=== PATIENT | female | born 2000 | race Caucasian/White ===

== ENCOUNTER 2022-08-05 06:45 | Observation (INO) ==
[2022-08-05 07:03] VITALS: BMI 21.6
[2022-08-05] MEDS ORDERED: TORADOL 60 MG VIAL IM ONE (07:09)
[2022-08-05] MEDS ORDERED: TORADOL 60 MG VIAL ONE (07:10)
[2022-08-05 07:25] LABS: BILIRUBIN,URINE NEGATIVE (NEGATIVE); BLOOD/HEMOGLOBIN,URINE 4+ (NEGATIVE); GLUCOSE, URINE NEGATIVE (NEGATIVE); KETONES,URINE NEGATIVE (NEGATIVE); LEUKOCYTE ESTERASE ,URINE NEGATIVE (NEGATIVE); NITRITES,URINE NEGATIVE (NEGATIVE); PROTEIN,URINE 1+ (NEGATIVE); UROBILINOGEN,URINE NORMAL (NORMAL)
[2022-08-05 07:26] LABS: BASOPHILS # (AUTO) 0.1 X10^3/uL (0.0-0.1); BASOPHILS % (AUTO) 0.7 % (0.2-1.0); EOSINOPHILS # (AUTO) 0.2 x10^3/uL (0.0-0.2); EOSINOPHILS % (AUTO) 1.3 % (0.9-2.9); HEMATOCRIT 36.7 % (36.0-47.0); HEMOGLOBIN 12.6 g/dL (12.0-16.0); LYMPHOCYTES # (AUTO) 3.6 X10^3/uL (1.3-2.9); LYMPHOCYTES % (AUTO) 26.9 % (21.0-51.0); MEAN CORPUSCULAR HEMOGLOBIN 27.7 pg (27.0-34.0); MEAN CORPUSCULAR HGB CONC 34.2 g/dL (33.0-35.0); MEAN CORPUSCULAR VOLUME 80.9 fL (80.0-100.0); MEAN PLATELET VOLUME 8.6 fL (7.4-11.0); MONOCYTES # (AUTO) 0.9 x10^3/uL (0.3-0.8); MONOCYTES % (AUTO) 6.6 % (0.0-13.0); NEUTROPHILS # (AUTO) 8.5 x10^3/uL (2.2-4.8); NEUTROPHILS % (AUTO) 64.5 % (42.0-75.0); RED BLOOD COUNT 4.54 X10^6/uL (3.5-5.4); RED CELL DISTRIBUTION WIDTH 12.9 % (11.6-16.5); WHITE BLOOD COUNT 13.2 X10^3/uL (3.6-10.0)
--- NOTE | 2022-08-05 07:26 | ED.ABDFE ---
HPI Time Seen Time Seen by Provider: 08/05/22 07:21 PCP Primary Care Physician: DEMIAN APONTE Complaint Doctors Chief Complaint Comments: PATIENT C/O INCREASED VAGINAL BLEEDING WITH ONSET OF LLQ ABDOMINAL PAIN STARTING YESTERDAY. TOOK IBUPROFEN 800MG YESTERDAY . HAD IUD REMOVED 2 WEEKS AGO AND HAD HAD SOME VAGINAL BLEEDING SINCE,BECAME MORE SEVERE YESTERDAY. Chief Complaint:: PT C/O SUDDEN ONSET OF PAIN INTO THE LEFT LOWER QUADRANT THAT RADIATES INTO THE MIDDLE OF THE PELVIS THAT STARTED YESTERDAY AFTERNOON. PT ALEX CRIBES PAIN A CONSTANT SEVERE CRAMPING THAT IS ASSOCIATED WITH NAUSEA. PT STATES THAT STRAINING TO URINATE MAKES THE PAIN WORSE. DENIES FEVER COVID-19 Coronavirus risk:travel/contact w/high risk person: No Has patient experienced Coronavirus symptoms: No Source History Provided: Patient Mode of arrival Mode of Arrival: Ambulatory Timing Onset of Chief Complaint: 08/04/22 PMH PMH Past Medical History: Yes Past Medical History Comment: vitiligo Past Surgical History: Yes Past Surgical History Comment: WISDOM TEETH REMOVED Family History History of Family Medical Conditions: Yes Family Medical History Comment: HYPOTHYROIDISM Social History Does patient currently use any type of tobacco product: No Have you used tobacco products in the last 12 months: No Type of Tobacco Use: None Does any household member use tobacco: No Alcohol Use: None Do you use any recreational Drugs:: No Lives With: Family Lives Where: Home Travel Risk Coronavirus risk:travel/contact w/high risk person: No Has patient experienced Coronavirus symptoms: No Infectious screening In the last 2 months have you had wt loss of >10#?: NO Have you had fever, night sweats or hemotysis?: No Have you traveled outside the country in the last 6 months?: No Isolation: Standard ROS Review of Systems Constitutional: Other (VAGINAL BLEDING WITH LLQ ABDOMINAL PAIN) Eyes: No Symptoms Reported ENTM: No Symptoms Reported Respiratoy: No Symptoms Reported Cardiovascular: No Symptoms Reported Gastrointestinal/Abdominal: Abdominal Pain Genitourinary: Bleeding (VAGINAL) Neurological: No Symptoms Reported Musculoskeletal: No Symptoms Reported Integumentary: No Symptoms Reported Hematologic/Lymphatic: No Symptoms Reported Endocrine: No Symptoms Reported Psychiatric: No Symptoms Reported PE Vital Signs Vitals: Temperature 97 F Pulse Rate [Left Radial] 115 Pulse Rate [Standing] 140 Pulse Rate [Sitting] 133 Pulse Rate [Lying] 118 Pulse Rate 130 Respiratory Rate 18 Blood Pressure [Standing] 118/86 Blood Pressure [Sitting] 124/77 Blood Pressure [Lying] 128/74 Blood Pressure 115/56 O2 Sat by Pulse Oximetry 100 General Limitations: No Limitations General Appearance: In Distress (MILD DISTRESS) Head Head Exam: Normal Inspection, Atraumatic and Normocephalic Eyes Eye exam: Normal Appearance, PERRL and EOMI ENT ENT Exam: Normal Exam, Normal Oropharynx and Normal External Ear Exam Neck Neck Exam: Normal Inspection, Full ROM and Trachea Midline Chest Chest Inspection: Normal Inspection and Symmetric Chest Wall Rise Respiratory Respiratory Exam: Normal Lung Sounds Bilat Respiratory Exam: Bilateral: Clear to Auscultation Cardiovascular Cardiovascular Exam: Regular Rate and Normal Rhythm Abdominal Exam Abdominal Exam: Normal Inspection, Normal Bowel Sounds, Soft and Tenderness (LLQ>RLQ) Abdominal Tenderness: LUQ and LLQ Rectal Rectal Exam: Deferred Back Back Exam: Normal Inspection and Full ROM Extremeties Extremities Exam: Normal Inspection and Full ROM External Exam: Female: Deferred MDM Differential Diagnosis Differential Diagnosis- Considerations may include:: Dysmenorrhea, Ectopic , PID and Urinary tract infection COURSE Treatment Treatment: PATIENT WAS GIVEN TORADOL 60MG IM FOR PAIN. HAD POSITVE TEST AND QHCG WAS ORDERED AND OB ULTRASOUND FOR POSSIBLE TUBAL . THIS PATIENT WAS SIGNED OUT TO DR CROCKETT AT SHIFT CHANGE. ROR Labs Reviewed Laboratory Results Reviewed?: Yes Result Diagrams: 08/06/22 04:00 08/06/22 04:00 Laboratory: WBC 13.2 X10^3/uL (3.6-10.0) H 08/05/22 07:15 RBC 4.54 X10^6/uL (3.5-5.4) 08/05/22 07:15 Hgb 12.6 g/dL (12.0-16.0) 08/05/22 07:15 Hct 36.7 % (36.0-47.0) 08/05/22 07:15 MCV 80.9 fL (80.0-100.0) 08/05/22 07:15 MCH 27.7 pg (27.0-34.0) 08/05/22 07:15 MCHC 34.2 g/dL (33.0-35.0) 08/05/22 07:15 RDW 12.9 % (11.6-16.5) 08/05/22 07:15 Plt Count 291 X10^3/uL (150.0-450.0) 08/05/22 07:15 MPV 8.6 fL (7.4-11.0) 08/05/22 07:15 Neut % (Auto) 64.5 % (42.0-75.0) 08/05/22 07:15 Lymph % (Auto) 26.9 % (21.0-51.0) 08/05/22 07:15 [place] % (Auto) 6.6 % (0.0-13.0) 08/05/22 07:15 Eos % (Auto) 1.3 % (0.9-2.9) 08/05/22 07:15 Baso % (Auto) 0.7 % (0.2-1.0) 08/05/22 07:15 Neut # (Auto) 8.5 x10^3/uL (2.2-4.8) H 08/05/22 07:15 Lymph # (Auto) 3.6 X10^3/uL (1.3-2.9) H 08/05/22 07:15 [place] # (Auto) 0.9 x10^3/uL (0.3-0.8) H 08/05/22 07:15 Eos # (Auto) 0.2 x10^3/uL (0.0-0.2) 08/05/22 07:15 Baso # (Auto) 0.1 X10^3/uL (0.0-0.1) 08/05/22 07:15 Absolute Nucleated RBC 0.0 /100WBC 08/05/22 07:15 Sodium 141 mmol/L (136-145) 08/05/22 07:15 Corrected Sodium TNP 08/05/22 07:15 Potassium 3.3 mmol/L (3.5-5.1) L 08/05/22 07:15 Chloride 104 mmol/L (98-107) 08/05/22 07:15 Carbon Dioxide 25.7 mmol/L (21-32) 08/05/22 07:15 BUN 10 mg/dL (7-18) 08/05/22 07:15 Creatinine 0.89 mg/dL (0.55-1.02) 08/05/22 07:15 Est GFR (MDRD) Af Amer > 60 (>60) 08/05/22 07:15 Est GFR (MDRD) Non-Af > 60 (>60) 08/05/22 07:15 Glucose 103 mg/dL (65-99) H 08/05/22 07:15 Calcium 8.6 mg/dL (8.5-10.1) 08/05/22 07:15 Corrected Calcium TNP 08/05/22 07:15 Total Bilirubin 0.60 mg/dL (0.2-1.0) 08/05/22 07:15 AST 15 Units/L (15-37) 08/05/22 07:15 ALT 16 Units/L (12-78) 08/05/22 07:15 Alkaline Phosphatase 57 Units/L (46-116) 08/05/22 07:15 Total Protein 7.2 g/dL (6.4-8.2) 08/05/22 07:15 Albumin 4.1 g/dL (3.4-5.0) 08/05/22 07:15 Globulin 3.1 g/dL (2.5-4.5) 08/05/22 07:15 Albumin/Globulin Ratio 1.3 Ratio (1.1-2.1) 08/05/22 07:15 HCG, Qual Positive >10 mIU/mL 08/05/22 07:15 HCG, Quant 4482 mIU/mL (0-6) H 08/05/22 07:15 Specimen Type Clean catch urine 08/05/22 07:09 Urine Color Yellow (YELLOW) 08/05/22 07:09 Urine Appearance Hazy (CLEAR) 08/05/22 07:09 Urine pH 6.0 (5.0 - 8.0) 08/05/22 07:09 Ur Specific [place] 1.020 (1.000-1.030) 08/05/22 07:09 Urine Protein 1+ (NEGATIVE) 08/05/22 07:09 Urine Glucose (UA) Negative (NEGATIVE) 08/05/22 07:09 Urine Ketones Negative (NEGATIVE) 08/05/22 07:09 Urine Blood 4+ (NEGATIVE) 08/05/22 07:09 Urine Nitrite Negative (NEGATIVE) 08/05/22 07:09 Urine Bilirubin Negative (NEGATIVE) 08/05/22 07:09 Urine Urobilinogen Normal (NORMAL) 08/05/22 07:09 Ur Leukocyte Esterase Negative (NEGATIVE) 08/05/22 07:09 Urine RBC 3-5 /HPF (0-3) A 08/05/22 07:09 Urine WBC 3-5 /HPF (0-5) 08/05/22 07:09 Ur Squamous Epith Cells Moderate /HPF (NEGATIVE) 08/05/22 07:09 Urine Bacteria Trace /HPF (NEGATIVE) 08/05/22 07:09 Urine Mucus Few /HPF (NEGATIVE) 08/05/22 07:09 Ur Culture Indicated? No/not indicated 08/05/22 07:09 Tissue Pathology To follow 08/05/22 10:50 Opioid Opioid Risk Tool Age (Luis Alberto box if 16-45): Yes History of Preadolescent Sexual Abuse: No Total: 1 Total Score Risk Category: Low Risk Copyright: Pedro STINSON predicting aberrant behaviors Discharge Plan Diagnosis Discharge Problem: DUB (dysfunctional uterine bleeding), Left tubal Discharge Plan Patient Disposition: ADMITTED INPATIENT Condition: Stable Orders to Discharge Patient Discharge Orders: Discharge (Routine); Ordered 08/06/22 Ordered By: JACQUELYN CEDEÑO
[2022-08-05 07:34] LABS: ALANINE AMINOTRANSFERASE 16 Units/L (12-78); ALBUMIN 4.1 g/dL (3.4-5.0); ALKALINE PHOSPHATASE 57 Units/L (46-116); ASPARTATE AMINO TRANSFERASE 15 Units/L (15-37); BLOOD UREA NITROGEN 10 mg/dL (7-18); CALCIUM 8.6 mg/dL (8.5-10.1); CARBON DIOXIDE 25.7 mmol/L (21-32); CHLORIDE 104 mmol/L (98-107); CREATININE 0.89 mg/dL (0.55-1.02); SODIUM 141 mmol/L (136-145); TOTAL PROTEIN 7.2 g/dL (6.4-8.2); eGFR NON BLACK RACES > 60 (>60)
[2022-08-05 07:38] LABS: APPEARANCE,URINE HAZY (CLEAR); BACTERIA,URINE TRACE /HPF (NEGATIVE); COLOR,URINE YELLOW (YELLOW); SQUAMOUS EPITHELIAL CELL,UR MODERATE /HPF (NEGATIVE)
[2022-08-05 07:39] LABS: SERUM PREGNANCY TEST, QUAL POSITIVE >10 mIU/mL
[2022-08-05] MEDS ORDERED: NS 1,000 ML IV 1,000 ML ONE (08:34)
[2022-08-05] MEDS ORDERED: NS 1,000 ML IV 1,000 ML IV ONE (08:35)
--- NOTE | 2022-08-05 08:41 | ED.ABDFE ---
HPI Time Seen Time Seen by Provider: 08/05/22 07:21 PCP Primary Care Physician: DEMINA APONTE Complaint Chief Complaint:: PT C/O SUDDEN ONSET OF PAIN INTO THE LEFT LOWER QUADRANT THAT RADIATES INTO THE MIDDLE OF THE PELVIS THAT STARTED YESTERDAY AFTERNOON. PT DESCRIBES PAIN A CONSTANT SEVERE CRAMPING THAT IS ASSOCIATED WITH NAUSEA. PT STATES THAT STRAINING TO URINATE MAKES THE PAIN WORSE. DENIES FEVER COVID-19 Coronavirus risk:travel/contact w/high risk person: No Has patient experienced Coronavirus symptoms: No Source History Provided: Patient Mode of arrival Mode of Arrival: Ambulatory Timing Onset of Chief Complaint: 08/04/22 PMH PMH Past Medical History: Yes Past Medical History Comment: vitiligo Past Surgical History: Yes Past Surgical History Comment: WISDOM TEETH REMOVED Family History History of Family Medical Conditions: Yes Family Medical History Comment: HYPOTHYROIDISM Social History Does patient currently use any type of tobacco product: No Have you used tobacco products in the last 12 months: No Type of Tobacco Use: None Does any household member use tobacco: No Alcohol Use: None Do you use any recreational Drugs:: No Lives With: Family Lives Where: Home Travel Risk Coronavirus risk:travel/contact w/high risk person: No Has patient experienced Coronavirus symptoms: No Infectious screening In the last 2 months have you had wt loss of >10#?: NO Have you had fever, night sweats or hemotysis?: No Have you traveled outside the country in the last 6 months?: No Isolation: Standard PE Vital Signs Vitals: Temperature 97 F Pulse Rate [Left Radial] 115 Pulse Rate [Standing] 140 Pulse Rate [Sitting] 133 Pulse Rate [Lying] 118 Pulse Rate 130 Respiratory Rate 18 Blood Pressure [Standing] 118/86 Blood Pressure [Sitting] 124/77 Blood Pressure [Lying] 128/74 Blood Pressure 115/56 O2 Sat by Pulse Oximetry 100 COURSE Treatment Treatment: PATIENT SIGN OUT TO ME BY DR. BOOKER. LABS AND OB US REPORT REVIEWED AND DISCUSSED WITH PATIENT. DISCUSSED CASE WITH OB MATTRESS FILLING MACHINE TENDER DR. CEDEÑO. SHE WILL TAKE PATIENT TO SURGERY NOW. [facility] Labs Reviewed Result Diagrams: 08/05/22 07:15 08/05/22 07:15 Laboratory: WBC 13.2 X10^3/uL (3.6-10.0) H 08/05/22 07:15 RBC 4.54 X10^6/uL (3.5-5.4) 08/05/22 07:15 Hgb 12.6 g/dL (12.0-16.0) 08/05/22 07:15 Hct 36.7 % (36.0-47.0) 08/05/22 07:15 MCV 80.9 fL (80.0-100.0) 08/05/22 07:15 MCH 27.7 pg (27.0-34.0) 08/05/22 07:15 MCHC 34.2 g/dL (33.0-35.0) 08/05/22 07:15 RDW 12.9 % (11.6-16.5) 08/05/22 07:15 Plt Count 291 X10^3/uL (150.0-450.0) 08/05/22 07:15 MPV 8.6 fL (7.4-11.0) 08/05/22 07:15 Neut % (Auto) 64.5 % (42.0-75.0) 08/05/22 07:15 Lymph % (Auto) 26.9 % (21.0-51.0) 08/05/22 07:15 [place] % (Auto) 6.6 % (0.0-13.0) 08/05/22 07:15 Eos % (Auto) 1.3 % (0.9-2.9) 08/05/22 07:15 Baso % (Auto) 0.7 % (0.2-1.0) 08/05/22 07:15 Neut # (Auto) 8.5 x10^3/uL (2.2-4.8) H 08/05/22 07:15 Lymph # (Auto) 3.6 X10^3/uL (1.3-2.9) H 08/05/22 07:15 [place] # (Auto) 0.9 x10^3/uL (0.3-0.8) H 08/05/22 07:15 Eos # (Auto) 0.2 x10^3/uL (0.0-0.2) 08/05/22 07:15 Baso # (Auto) 0.1 X10^3/uL (0.0-0.1) 08/05/22 07:15 Absolute Nucleated RBC 0.0 /100WBC 08/05/22 07:15 Sodium 141 mmol/L (136-145) 08/05/22 07:15 Corrected Sodium TNP 08/05/22 07:15 Potassium 3.3 mmol/L (3.5-5.1) L 08/05/22 07:15 Chloride 104 mmol/L (98-107) 08/05/22 07:15 Carbon Dioxide 25.7 mmol/L (21-32) 08/05/22 07:15 BUN 10 mg/dL (7-18) 08/05/22 07:15 Creatinine 0.89 mg/dL (0.55-1.02) 08/05/22 07:15 Est GFR (MDRD) Af Amer > 60 (>60) 08/05/22 07:15 Est GFR (MDRD) Non-Af > 60 (>60) 08/05/22 07:15 Glucose 103 mg/dL (65-99) H 08/05/22 07:15 Calcium 8.6 mg/dL (8.5-10.1) 08/05/22 07:15 Corrected Calcium TNP 08/05/22 07:15 Total Bilirubin 0.60 mg/dL (0.2-1.0) 08/05/22 07:15 AST 15 Units/L (15-37) 08/05/22 07:15 ALT 16 Units/L (12-78) 08/05/22 07:15 Alkaline Phosphatase 57 Units/L (46-116) 08/05/22 07:15 Total Protein 7.2 g/dL (6.4-8.2) 08/05/22 07:15 Albumin 4.1 g/dL (3.4-5.0) 08/05/22 07:15 Globulin 3.1 g/dL (2.5-4.5) 08/05/22 07:15 Albumin/Globulin Ratio 1.3 Ratio (1.1-2.1) 08/05/22 07:15 HCG, Qual Positive >10 mIU/mL 08/05/22 07:15 HCG, Quant 4482 mIU/mL (0-6) H 08/05/22 07:15 Specimen Type Clean catch urine 08/05/22 07:09 Urine Color Yellow (YELLOW) 08/05/22 07:09 Urine Appearance Hazy (CLEAR) 08/05/22 07:09 Urine pH 6.0 (5.0 - 8.0) 08/05/22 07:09 Ur Specific [place] 1.020 (1.000-1.030) 08/05/22 07:09 Urine Protein 1+ (NEGATIVE) 08/05/22 07:09 Urine Glucose (UA) Negative (NEGATIVE) 08/05/22 07:09 Urine Ketones Negative (NEGATIVE) 08/05/22 07:09 Urine Blood 4+ (NEGATIVE) 08/05/22 07:09 Urine Nitrite Negative (NEGATIVE) 08/05/22 07:09 Urine Bilirubin Negative (NEGATIVE) 08/05/22 07:09 Urine Urobilinogen Normal (NORMAL) 08/05/22 07:09 Ur Leukocyte Esterase Negative (NEGATIVE) 08/05/22 07:09 Urine RBC 3-5 /HPF (0-3) A 08/05/22 07:09 Urine WBC 3-5 /HPF (0-5) 08/05/22 07:09 Ur Squamous Epith Cells Moderate /HPF (NEGATIVE) 08/05/22 07:09 Urine Bacteria Trace /HPF (NEGATIVE) 08/05/22 07:09 Urine Mucus Few /HPF (NEGATIVE) 08/05/22 07:09 Ur Culture Indicated? No/not indicated 08/05/22 07:09 Tissue Pathology To follow 08/05/22 10:50 Opioid Opioid Risk Tool Age (Luis Alberto box if 16-45): Yes History of Preadolescent Sexual Abuse: No Total: 1 Total Score Risk Category: Low Risk Copyright: Pedro STINSON predicting aberrant behaviors Discharge Plan Diagnosis Discharge Problem: DUB (dysfunctional uterine bleeding), Left tubal Discharge Plan Patient Disposition: 09 ADMITTED INPATIENT Condition: Stable
--- NOTE | 2022-08-05 09:01 | US ---
HISTORYpt had iud removed x 2 weeks ago, severe llq pain with vag bleeding, postive preg test, quant 4482, r/o ectopicSTUDYOB LESS THAN 14 WEEKSCOMPARISONNoneTECHNIQUEOb ultrasound less than 14 weeks transvaginal approach.FINDINGSThe uterus measures 6.4 x 4.1 x 5.1 cm. There is debris possibly but product within the endometrial canal. The right ovary measures 3.7 x 1.9 x 4 cm. Left ovary measures 4.7 x 3.4 x 5 cm. There is a moderate amount of fluid in the pelvis particularly about the right adnexa and uterus. Normal Doppler waveforms to the left ovary. Doppler waveforms to the right ovary more not performed. No intrauterine identified.IMPRESSIONNo intrauterine identified. With a beta HCG greater than 3000 and no intrauterine gestational sac, a viable intrauterine is unlikely. Recommend follow-up ultrasound and trending beta HCG as clinically warranted.Moderate amount of fluid in the pelvis. No ectopic is directly visualized, but an ectopic , including ruptured ectopic , is not excluded.Electronically signed by: Nadeem Diallo (Aug 05, 2022 08:59:24)
[2022-08-05] MEDS ORDERED: VERSED ONE (09:48)
[2022-08-05] MEDS ORDERED: PEPCID 20 MG VIAL ONE (09:48)
[2022-08-05] MEDS ORDERED: ZOFRAN INJ 4 MG VIAL ONE (09:48)
[2022-08-05] MEDS ORDERED: REGLAN INJ 10 MG VIAL ONE (09:48)
[2022-08-05] MEDS ORDERED: BICITRA 30 ML PO ONE (09:51)
[2022-08-05] MEDS ORDERED: ZEMURON 100 MG VIAL ONE (10:04)
[2022-08-05] MEDS ORDERED: KETAMINE 50 MG/5 ML-NACL SYRNG ONE (10:04)
[2022-08-05] MEDS ORDERED: QUELICIN (OR ANECTINE) ONE (10:04)
[2022-08-05] MEDS ORDERED: DECADRON INJ ONE ×2 (10:04→11:08)
[2022-08-05] MEDS ORDERED: DILAUDID INJ ONE (10:04)
[2022-08-05] MEDS ORDERED: BYFAVO INJ IVP ONE (10:06)
[2022-08-05] MEDS ORDERED: LR 1,000 ML IV 1,000 ML IV ONE (10:10)
[2022-08-05] MEDS ORDERED: ANCEF VIAL 1 GRAM ONE (10:10)
[2022-08-05] MEDS ORDERED: NS 100 ML IV 100 ML ONE (10:10)
[2022-08-05] MEDS ORDERED: ULTANE GAS IN ONE (10:20)
[2022-08-05] MEDS ORDERED: NEO-SYNEPHRINE INJ ONE (10:45)
[2022-08-05] MEDS ORDERED: EPHEDRINE SULFATE INJ ONE (10:49)
[2022-08-05] MEDS ORDERED: NAROPIN 0.75% EPI ONE (11:08)
[2022-08-05] MEDS ORDERED: BRIDION ONE (11:11)
[2022-08-05] MEDS ORDERED: MOTRIN TAB 800 MG PO PRN (11:34)
[2022-08-05] MEDS ORDERED: REGLAN INJ 10 MG VIAL IVP PRN (11:55)
[2022-08-05] MEDS ORDERED: ZOFRAN INJ 4 MG VIAL IVP PRN (11:55)
[2022-08-05] MEDS ORDERED: DILAUDID INJ IVP PRN (11:55)
[2022-08-05] MEDS ORDERED: BENADRYL INJ 50 MG VIAL IVP PRN ×2 (11:55→12:01)
[2022-08-05] MEDS ORDERED: BARHEMSYS INJ IVP PRN (11:55)
[2022-08-05] MEDS ORDERED: TORADOL 30 MG VIAL IVP PRN ×2 (12:01→20:18)
[2022-08-05] MEDS ORDERED: D5 1/2 NS 1,000 ML 1,000 ML IV ONE (12:30)
[2022-08-05] MEDS: D5 1/2 NS 1,000 ML 1,000 ML IV SCH ×2 (12:31→21:32)
[2022-08-05] MEDS ORDERED: TORADOL 30 MG VIAL ONE (12:32)
[2022-08-06] MEDS: PERCOCET TAB 5/325 MG PO PRN ×2 (01:34→08:30)
[2022-08-06] MEDS: ZOFRAN INJ 4 MG VIAL IVP PRN ×2 (01:34→05:44)
[2022-08-06] MEDS: D5 1/2 NS 1,000 ML 1,000 ML IV SCH ×2 (03:41→05:11)
[2022-08-06 05:11] LABS: BASOPHILS % (AUTO) 0.2 % (0.2-1.0); MONOCYTES # (AUTO) 1.2 x10^3/uL (0.3-0.8)
[2022-08-06 05:15] LABS: BLOOD UREA NITROGEN 5 mg/dL (7-18); CARBON DIOXIDE 24.2 mmol/L (21-32); CHLORIDE 108 mmol/L (98-107); COR NA(FOR HYPERGLY) 143 mmol/L (136-145); CREATININE 0.77 mg/dL (0.55-1.02); SODIUM 142 mmol/L (136-145); eGFR NON BLACK RACES > 60 (>60)
[2022-08-06 05:24] LABS: HEMATOCRIT 27.2 % (36.0-47.0); LYMPHOCYTES % (AUTO) 9.2 % (21.0-51.0); MEAN CORPUSCULAR HEMOGLOBIN 28.1 pg (27.0-34.0); MEAN CORPUSCULAR HGB CONC 34.6 g/dL (33.0-35.0); MEAN CORPUSCULAR VOLUME 81.2 fL (80.0-100.0); MEAN PLATELET VOLUME 9.5 fL (7.4-11.0); MONOCYTES % (AUTO) 5.5 % (0.0-13.0); NEUTROPHILS # (AUTO) 18.6 x10^3/uL (2.2-4.8); NEUTROPHILS % (AUTO) 85.1 % (42.0-75.0); RED BLOOD COUNT 3.35 X10^6/uL (3.5-5.4); RED CELL DISTRIBUTION WIDTH 12.6 % (11.6-16.5); WHITE BLOOD COUNT 21.8 X10^3/uL (3.6-10.0)
[2022-08-06 05:36] LABS: HEMOGLOBIN 9.4 g/dL (12.0-16.0)
[2022-08-06 05:47] LABS: PLATELET MORPHOLOGY COMMENT NORMAL (NORMAL)
[2022-08-06 08:05] VITALS: BP 130/71
== END 2022-08-06 09:20 | disposition home or self-care (01) ==
LOC: ER 06:49 → MED/SURG 06:49
PROVIDERS: ADMIT Specialist; ATTEND Specialist
DX: N93.8 Other specified abnormal uterine and vaginal bleeding; Z3A.00 Weeks of gestation of pregnancy not specified; O00.102 Left tubal pregnancy without intrauterine pregnancy; R42 Dizziness and giddiness; R10.32 Left lower quadrant pain; E87.6 Hypokalemia

== ENCOUNTER 2024-11-07 03:51 | Inpatient (IN) ==
[2024-11-07 04:10] LABS: BILIRUBIN,URINE NEGATIVE (NEGATIVE); BLOOD/HEMOGLOBIN,URINE 5+ (NEGATIVE); GLUCOSE, URINE NEGATIVE (NEGATIVE); KETONES,URINE NEGATIVE (NEGATIVE); LEUKOCYTE ESTERASE ,URINE 1+ (NEGATIVE); NITRITES,URINE NEGATIVE (NEGATIVE); PROTEIN,URINE NEGATIVE (NEGATIVE); UROBILINOGEN,URINE NORMAL (NORMAL)
[2024-11-07 04:17] LABS: AMNISURE ROM TEST THERE IS A RUPTURE (NO RUPTURE)
[2024-11-07 04:18] LABS: APPEARANCE,URINE CLEAR (CLEAR); BACTERIA,URINE TRACE /HPF (NEGATIVE); COLOR,URINE PALE YELLOW (YELLOW); RBC,URINE 30-50 /HPF (0-3); SQUAMOUS EPITHELIAL CELL,UR RARE /HPF (NEGATIVE)
[2024-11-07 04:20] VITALS: BMI 29.9
[2024-11-07 04:35] LABS: BASOPHILS # (AUTO) 0.1 X10^3/uL (0.0-0.1); BASOPHILS % (AUTO) 0.6 % (0.2-1.0); EOSINOPHILS # (AUTO) 0.3 x10^3/uL (0.0-0.2); EOSINOPHILS % (AUTO) 1.5 % (0.9-2.9); HEMATOCRIT 42.1 % (36.0-47.0); HEMOGLOBIN 14.6 g/dL (12.0-16.0); LYMPHOCYTES # (AUTO) 3.1 X10^3/uL (1.3-2.9); LYMPHOCYTES % (AUTO) 16.4 % (21.0-51.0); MEAN CORPUSCULAR HEMOGLOBIN 30.3 pg (27.0-34.0); MEAN CORPUSCULAR HGB CONC 34.6 g/dL (33.0-35.0); MEAN CORPUSCULAR VOLUME 87.6 fL (80.0-100.0); MEAN PLATELET VOLUME 10.3 fL (7.4-11.0); MONOCYTES # (AUTO) 1.3 x10^3/uL (0.3-0.8); NEUTROPHILS # (AUTO) 13.9 x10^3/uL (2.2-4.8); NEUTROPHILS % (AUTO) 74.5 % (42.0-75.0); PLATELET COUNT 190 X10^3/uL (150.0-450.0); RED BLOOD COUNT 4.81 X10^6/uL (3.5-5.4); RED CELL DISTRIBUTION WIDTH 14.4 % (11.6-16.5); WHITE BLOOD COUNT 18.7 X10^3/uL (3.6-10.0)
[2024-11-07 04:38] LABS: BLOOD UREA NITROGEN 7 mg/dL (7-18); CALCIUM 9.2 mg/dL (8.5-10.1); CARBON DIOXIDE 24.5 mmol/L (21-32); CHLORIDE 103 mmol/L (98-107); GLUCOSE 87 mg/dL (65-99); POTASSIUM 3.3 mmol/L (3.5-5.1); SODIUM 139 mmol/L (136-145); eGFR NON BLACK RACES > 60 (>60)
[2024-11-07] MEDS ORDERED: NUBAIN INJ 20 MG AMP IVP PRN (05:00)
[2024-11-07] MEDS ORDERED: REGLAN INJ 10 MG VIAL IVP PRN (05:00)
[2024-11-07] MEDS ORDERED: ZOFRAN INJ 4 MG VIAL IVP PRN (05:00)
[2024-11-07] MEDS: LR 1,000 ML IV 1,000 ML IV ONE ×2 (05:06→07:27)
[2024-11-07] MEDS: FENTANYL VIAL INJ 100 mcg ONE (05:59)
[2024-11-07] MEDS: D5 1/2 NS 1,000 ML 1,000 ML IV SCH (06:02)
[2024-11-07] MEDS: NAROPIN EPIDURAL 0.2% 100 ML ONE (06:02)
--- NOTE | 2024-11-07 06:35 | DR.OB ---
OB QUICK NOTE Assessment/Plan (1) Active labor at term: Assessment/Plan: L&D 11/07/24 at 6:15am S-No complaint. s/p epidural. O-Afebrile,VSS MMP=879 with good LTV, +accel, no decel. CTX=q 1 1/2 min., mod. by palpation CVX=6cm/90%/-1/VTX SROM with clear fluid. IUPC and FSE placed. A-IUP 39 2/7 weeks in active labor SROM P-F/U labs Pitocin augmentation as needed Anticipate
[2024-11-07] MEDS: OXYTOCIN 20 UNIT/1,000 ML-NS 20 UNIT/1,000 ML PLAST..BAG IV PRN (06:38)
[2024-11-07] MEDS: ZOFRAN INJ 4 MG VIAL ONE (07:12)
[2024-11-07] MEDS: PITOCIN ONE (07:26)
[2024-11-07] MEDS: D5 1/2 NS 1,000 ML 1,000 ML IV ONE (07:26)
[2024-11-07] MEDS: BETADINE SOLN ONE (09:30)
[2024-11-07] MEDS: PITOCIN IVP ONE (09:45)
--- NOTE | 2024-11-07 10:00 | DR.OB ---
OB QUICK NOTE Assessment/Plan (1) Active labor at term: Assessment/Plan: Delivery Note BMX RIDER 11/07/24 at 9:41am Patient complete and pushing. Mother and stable. Head delivered over intact perineum. No nuchal cord. Nose and mouth bulb suctioned. Body delivered over intact perineum. Cord clamped x 2 and cut. handed to attendant. Cord sent for gases. Placenta delivered spontaneously / intact / 3 vessel cord. No CVX tears. A small midline second degree tear noted and repaired with 0-vicryl in usual fashion. Viable male delivered by , VTX/OA, wt=7'2" and 9/9, stable to NBN. Mother stable to RR. [id number].
[2024-11-07] MEDS: OXYTOCIN 20 UNIT/1,000 ML-NS 20 UNIT/1,000 ML PLAST..BAG IV SCH (10:55)
[2024-11-07] MEDS ORDERED: MILK OF MAGNESIA PO PRN (11:17)
[2024-11-07] MEDS ORDERED: MOTRIN TAB 800 MG PO PRN (11:17)
[2024-11-07] MEDS ORDERED: AMBIEN PO PRN (11:17)
[2024-11-07] MEDS: ADACEL or BOOSTRIX TDaP VACCINE IM ONE (11:31)
[2024-11-07] MEDS ORDERED: CONSULT PHARMACY - POTASSIUM & MAGNESIUM XX SCH (13:00)
[2024-11-07] MEDS: K-DUR TAB 20 MEQ PO SCH (13:03)
[2024-11-07] MEDS: MOTRIN TAB 800 MG PO PRN (13:06)
[2024-11-07] MEDS: DERMOPLAST PAIN RELIEF SPRAY TOP PRN (16:11)
[2024-11-08 05:18] LABS: HEMATOCRIT 37.9 % (36.0-47.0); HEMOGLOBIN 13.1 g/dL (12.0-16.0)
[2024-11-08] MEDS: PRENATAL PLUS PO SCH (08:18)
[2024-11-08 21:18] VITALS: RESP 18
[2024-11-09 08:33] VITALS: BP 130/77; PULSE 97; TEMP 97.9; O2SAT 100
== END 2024-11-09 11:15 | disposition home or self-care (01) | DRG 807 ==
LOC: ER 03:51 → LD 04:58 → MED/SURG 10:55
PROVIDERS: ADMIT Specialist; ATTEND Specialist
DX: Z3A.39 39 weeks gestation of pregnancy; Z37.0 Single live birth; O70.1 Second degree perineal laceration during delivery; O26.893 Other specified pregnancy related conditions, third trimester